=== PATIENT | female | born 1955 | race Caucasian/White ===

== ENCOUNTER 2018-11-02 09:50 | Inpatient (IN) | payer MEDICAID ==
[~2018-11-02] VITALS: Ht 167.6 cm; Wt 159.7 kg
[~2018-11-02 09:50] MED LIST: ATEN50TA PO; BENA10TA10 PO; FAMO20TA8 PO; HYDR25TA PO; MELO-106 PO; METF-414 PO; PANT40TA4 PO; SIME180C47 PO; SIMV20TA6 PO
[2018-11-02] MEDS ORDERED: SODIUM CHLORIDE 0.9% 1,000 ML IV ONE ×2 (10:23→12:00)
[2018-11-02] MEDS ORDERED: KETOROLAC 30MG/ML VIAL IV STA (10:23)
[2018-11-02 10:55] LABS: BASOPHILS % 0.6 % (0.0-2.0); EOSINOPHILS % 0.5 % (0.0-5.0); HEMATOCRIT. 45.9 % (36.0-48.0); HEMOGLOBIN. 15.6 g/dL (12.0-16.0); LYMPHOCYTES % 11.7 % (20.0-50.0); MEAN CORPUSCULAR HEMOGLOBIN 31.2 pg (28.0-32.0); MEAN CORPUSCULAR VOLUME 92.2 fL (81.0-99.0); MEAN PLATELET VOLUME 7.6 fl (7.4-10.4); MONOCYTES % 4.4 % (2.0-8.0); NEUTROPHILS % 82.8 % (40.0-76.0); PLATELET 246 x1000/uL (130-400); RED BLOOD CELL COUNT 4.98 mill/uL (4.2-5.4); RED CELL DISTRIBUTION WIDTH 13.8 % (11.6-14.6)
[2018-11-02 11:01] LABS: CHLORIDE 100 mEq/L (98-107)
[2018-11-02] MEDS ORDERED: ONDANSETRON HCL 4MG/2ML INJ IV ONE ×2 (12:00→14:15)
[2018-11-02 12:09] LABS: CLARITY URINE CLOUDY (CLEAR); COLOR URINE DARK YELLOW (YELLOW); KETONES URINE TRACE (NEGATIVE); LEUKOCYTE ESTERASE URINE NEGATIVE (NEGATIVE); NITRITE URINE NEGATIVE (NEGATIVE); OCCULT BLOOD URINE NEGATIVE (NEGATIVE); PH URINE 7.5 (4.5-8.0); PROTEIN URINE 2+ (NEGATIVE); SPECIFIC GRAVITY URINE 1.023 (1.005-1.030)
[2018-11-02 12:20] LABS: BG BASE EXCESS 5.7 mmol/L (-2.0-2.0); BG FRACTION INSPIRED OXYGEN 21; BG HCO3 ACT 30.6 mmol/L (22.0-26.0); BG METHEMOGLOBIN 0.2 % (0.0-1.5); BG OXYGEN SATURATION 94.9 % (92.0-98.5); BG OXYHEMOGLOBIN 93.8 % (94.0-97.0); BG PCO2 44.9 mmHg (35.0-45.0); BG PH 7.451 (7.350-7.450); BG PO2 70.5 mmHg (75.0-100.0); BG SAMPLE SITE RIGHT BRACHIAL; BG TOTAL HEMOGLOBIN 15.8 g/dL (12.0-18.0); BG VENT MODE ROOM AIR
[2018-11-02] MEDS ORDERED: LORAZEPAM 0.5MG TABLET PO ONE (13:30)
[2018-11-02] MEDS ORDERED: VISCOUS LIDOCAINE 2% 15 ML UDC MM PRN (13:30)
[2018-11-02] MEDS ORDERED: ONDANSETRON HCL 4MG/2ML INJ IV PRN (15:15)
[2018-11-02] MEDS ORDERED: DIPHENHYDRAMINE 50MG/ML VIAL IV PRN (15:15)
[2018-11-02] MEDS ORDERED: GUAIFENESIN 200MG/10ML SUGAR FREE UDC PO PRN (15:15)
[2018-11-02] MEDS ORDERED: IPRATROPIUM/ALBUTEROL 0.5-3(2.5)MG/3ML NEB INH PRN (15:15)
[2018-11-02] MEDS ORDERED: DOCUSATE SODIUM 100MG CAPSULE PO PRN (15:15)
[2018-11-02] MEDS ORDERED: MORPHINE SULFATE 4 MG/ML CPJ (NOT FOR IM USE) IV PRN (15:15)
[2018-11-02 15:28] LABS: PHOSPHORUS 1.8 mg/dL (2.5-4.9)
[2018-11-02] MEDS ORDERED: HYDRALAZINE 20MG/ML VIAL IV PRN ×2 (17:30→19:00)
[2018-11-02] MEDS ORDERED: HYDRALAZINE 10 MG in SODIUM CHLORIDE 0.9% 49.5 ML IV PRN (19:15)
[2018-11-02 20:00] VITALS: BP 176/89
[2018-11-02] MEDS ORDERED: DEXTROSE 50% WATER 50ML SYRINGE IV PRN (20:15)
[2018-11-02] MEDS: BLOOD SUGAR DIAGNOSTIC STRIP TEST SCH (20:41)
[2018-11-02] MEDS: INSULIN LISPRO 100 UNITS/ML SUBCUT SCH (21:22)
[2018-11-02] MEDS: ENALAPRIL 1.25 MG in DEXTROSE 5% WATER 50 ML IV SCH (22:27)
[2018-11-02] MEDS: ENOXAPARIN 40MG/0.4ML SYR SUBCUT SCH (22:32)
[2018-11-03] VITALS: BP 157/84
[2018-11-03] MEDS ORDERED: LORA10TA7 PO (02:25)
[2018-11-03] MEDS: ENALAPRIL 1.25 MG in DEXTROSE 5% WATER 50 ML IV SCH ×4 (03:16→21:16)
[2018-11-03 04:00] VITALS: BP 152/80
[2018-11-03] MEDS: BLOOD SUGAR DIAGNOSTIC STRIP TEST SCH ×4 (06:44→21:15)
[2018-11-03 07:40] LABS: BASOPHILS % 0.3 % (0.0-2.0); EOSINOPHILS % 1.5 % (0.0-5.0); HEMATOCRIT. 42.5 % (36.0-48.0); HEMOGLOBIN. 14.4 g/dL (12.0-16.0); LYMPHOCYTES % 27.2 % (20.0-50.0); MEAN CORPUSCULAR HEMOGLOBIN 31.7 pg (28.0-32.0); MEAN CORPUSCULAR VOLUME 93.8 fL (81.0-99.0); MEAN PLATELET VOLUME 7.8 fl (7.4-10.4); MONOCYTES % 13.1 % (2.0-8.0); NEUTROPHILS % 57.9 % (40.0-76.0); PLATELET 211 x1000/uL (130-400); RED BLOOD CELL COUNT 4.54 mill/uL (4.2-5.4); RED CELL DISTRIBUTION WIDTH 13.9 % (11.6-14.6)
[2018-11-03] MEDS: INSULIN LISPRO 100 UNITS/ML SUBCUT SCH ×4 (07:50→21:00)
[2018-11-03 07:56] VITALS: BP 160/75
[2018-11-03 08:18] LABS: CHLORIDE 107 mEq/L (98-107)
[2018-11-03 08:32] LABS: HDL CHOLESTEROL 43 mg/dL (40-59)
[2018-11-03 08:33] LABS: LDL CHOLESTEROL 102 mg/dL (5-100)
[2018-11-03] MEDS: ENOXAPARIN 40MG/0.4ML SYR SUBCUT SCH ×2 (09:20→21:15)
[2018-11-03 12:00] VITALS: BP 130/93
[2018-11-03] MEDS: ACETAMINOPHEN 650MG SUPP PR PRN ×2 (12:19→18:52)
[2018-11-03] MEDS: ATENOLOL 50 MG TABLET PO SCH (14:00)
[2018-11-03] MEDS: LORATADINE 10MG TABLET PO SCH (14:00)
[2018-11-03] MEDS: HYDROCHLOROTHIAZIDE 25MG TABLET PO SCH (14:00)
[2018-11-03 16:00] VITALS: BP 124/88
[2018-11-03] MEDS ORDERED: DEXT 5%/0.45% NACL 500ML 500 ML IV ONE (16:30)
[2018-11-03 20:00] VITALS: BP 168/87
[2018-11-03] MEDS: ATORVASTATIN CALCIUM 20MG TABLET PO SCH (21:00)
[2018-11-03] MEDS: FAMOTIDINE 20MG TABLET PO SCH (21:00)
[2018-11-03] MEDS ORDERED: ENALAPRIL 2.5MG/2ML VIAL 2ML IV SCH (22:00)
[2018-11-04] VITALS: BP 146/64
[2018-11-04] MEDS: ENALAPRIL 1.25 MG in DEXTROSE 5% WATER 50 ML IV SCH ×4 (03:20→22:27)
[2018-11-04 04:00] VITALS: BP 170/80
[2018-11-04] MEDS: BLOOD SUGAR DIAGNOSTIC STRIP TEST SCH ×4 (06:20→21:27)
[2018-11-04] MEDS: INSULIN LISPRO 100 UNITS/ML SUBCUT SCH ×4 (07:50→21:00)
[2018-11-04 08:00] VITALS: BP_SYST 122; BP_SYST 175; BP_DIAS 112; BP_DIAS 70
[2018-11-04] MEDS: BENAZEPRIL 10MG TABLET PO SCH (08:33)
[2018-11-04] MEDS: ATENOLOL 50 MG TABLET PO SCH (08:33)
[2018-11-04] MEDS: LORATADINE 10MG TABLET PO SCH (08:33)
[2018-11-04] MEDS: HYDROCHLOROTHIAZIDE 25MG TABLET PO SCH (08:33)
[2018-11-04] MEDS ORDERED: PNEUMOCOCCAL 23-VAL P-SAC VAC 0.5 ML IM ONE (09:00)
[2018-11-04] MEDS: ENOXAPARIN 40MG/0.4ML SYR SUBCUT SCH ×2 (09:52→20:00)
[2018-11-04 12:00] VITALS: BP 179/105
[2018-11-04] MEDS ORDERED: HYDRALAZINE 5 MG in SODIUM CHLORIDE 0.9% 49.75 ML IV SCH (13:00)
[2018-11-04 16:00] VITALS: BP 156/84
[2018-11-04 20:00] VITALS: BP 163/79
[2018-11-04] MEDS: FAMOTIDINE 20MG TABLET PO SCH (21:00)
[2018-11-04] MEDS: ATORVASTATIN CALCIUM 20MG TABLET PO SCH (21:00)
[2018-11-04] MEDS ORDERED: SODIUM CHLORIDE 0.9% 1,000 ML IV SCH (22:15)
[2018-11-05] VITALS: BP 138/72
[2018-11-05] MEDS: ACETAMINOPHEN 650MG SUPP PR PRN (00:59)
[2018-11-05 04:00] VITALS: BP 174/86
[2018-11-05] MEDS: ENALAPRIL 1.25 MG in DEXTROSE 5% WATER 50 ML IV SCH ×3 (04:07→16:00)
[2018-11-05 06:03] LABS: BASOPHILS % 0.3 % (0.0-2.0); HEMATOCRIT. 43.4 % (36.0-48.0); HEMOGLOBIN. 14.4 g/dL (12.0-16.0); LYMPHOCYTES % 28.4 % (20.0-50.0); MEAN CORPUSCULAR HEMOGLOBIN 31.1 pg (28.0-32.0); MEAN CORPUSCULAR VOLUME 93.8 fL (81.0-99.0); MEAN PLATELET VOLUME 7.7 fl (7.4-10.4); MONOCYTES % 8.2 % (2.0-8.0); NEUTROPHILS % 62.1 % (40.0-76.0); PLATELET 231 x1000/uL (130-400); RED BLOOD CELL COUNT 4.62 mill/uL (4.2-5.4); RED CELL DISTRIBUTION WIDTH 13.7 % (11.6-14.6)
[2018-11-05] MEDS: BLOOD SUGAR DIAGNOSTIC STRIP TEST SCH ×3 (06:36→18:15)
[2018-11-05 07:29] LABS: CHLORIDE 105 mEq/L (98-107)
[2018-11-05] MEDS: INSULIN LISPRO 100 UNITS/ML SUBCUT SCH ×3 (07:50→17:50)
[2018-11-05] MEDS: ENOXAPARIN 40MG/0.4ML SYR SUBCUT SCH (08:01)
[2018-11-05] MEDS: LORATADINE 10MG TABLET PO SCH (08:01)
[2018-11-05] MEDS: BENAZEPRIL 10MG TABLET PO SCH (08:01)
[2018-11-05] MEDS: HYDROCHLOROTHIAZIDE 25MG TABLET PO SCH (08:01)
[2018-11-05] MEDS: ATENOLOL 50 MG TABLET PO SCH (08:02)
[2018-11-05 08:21] VITALS: BP 152/90
[2018-11-05] MEDS ORDERED: ACETAMINOPHEN 650MG/20.3ML UDC PO PRN (11:30)
[2018-11-05 11:37] VITALS: BP 151/87
[2018-11-05 16:01] VITALS: BP 170/92
[2018-11-05 20:00] VITALS: BP 183/83
== END 2018-11-05 20:15 | disposition left against medical advice (07) ==
LOC: ER 09:50 → 6EST 11:50 → EDBEDREQ 11:57 → CANBEDREQ 12:38 → ENRESERV 17:53
PROVIDERS: ADMIT Internal Medicine; ATTEND Internal Medicine
DX: K80.20 Calculus of gallbladder without cholecystitis without obstruction (principal); E66.01 Morbid (severe) obesity due to excess calories; K76.0 Fatty (change of) liver, not elsewhere classified; E11.65 Type 2 diabetes mellitus with hyperglycemia; R16.0 Hepatomegaly, not elsewhere classified; Z68.43 Body mass index [BMI] 50.0-59.9, adult; K44.9 Diaphragmatic hernia without obstruction or gangrene; Z53.21 Procedure and treatment not carried out due to patient leaving prior to being seen by health care provider; K43.9 Ventral hernia without obstruction or gangrene; I10 Essential (primary) hypertension; Z79.84 Long term (current) use of oral hypoglycemic drugs; Z79.899 Other long term (current) drug therapy; Z88.8 Allergy status to other drugs, medicaments and biological substances
CPT/HCPCS: 36415; 36600; 74018; 74176; 76700; 80048; 80061; 82375; 82805; 82962; 83036; 83735; 84100; 84443; 90732; 93970; 97116; 97162; 97166; 99285; C1893; J0360; J1650; J1815; J1885; J2405; J3490; J7030; J7060; A4315

== ENCOUNTER 2019-04-20 16:39 | Emergency (ER) | payer MEDICAID ==
[~2019-04-20] VITALS: Ht 167.6 cm; Wt 109.0 kg
[~2019-04-20 16:39] MED LIST changes: -BENA10TA10 PO; +BENA10TA12 PO; +LORA10TA7 PO
[2019-04-20 18:37] VITALS: BP 129/87
== END 2019-04-20 19:18 | disposition home or self-care (01) ==
LOC: ER 16:55
DX: K94.00 Colostomy complication, unspecified (principal); E11.9 Type 2 diabetes mellitus without complications; I10 Essential (primary) hypertension; Z88.4 Allergy status to anesthetic agent; Z79.899 Other long term (current) drug therapy
CPT/HCPCS: 99283

== ENCOUNTER 2019-04-28 18:47 | Emergency (ER) | payer MEDICAID ==
[~2019-04-28] VITALS: Ht 162.6 cm; Wt 85.0 kg
[2019-04-28 19:53] LABS: CHLORIDE 109 mEq/L (98-107)
[2019-04-28 20:04] LABS: BASOPHILS % 0.9 % (0.0-2.0); EOSINOPHILS % 2.5 % (0.0-5.0); HEMATOCRIT. 35.9 % (36.0-48.0); HEMOGLOBIN. 11.7 g/dL (12.0-16.0); LYMPHOCYTES % 32.3 % (20.0-50.0); MEAN CORPUSCULAR HEMOGLOBIN 32.7 pg (28.0-32.0); MEAN CORPUSCULAR VOLUME 100.3 fL (81.0-99.0); MEAN PLATELET VOLUME 7.3 fl (7.4-10.4); MONOCYTES % 10.5 % (2.0-8.0); NEUTROPHILS % 53.8 % (40.0-76.0); PLATELET 272 x1000/uL (130-400); RED BLOOD CELL COUNT 3.58 mill/uL (4.2-5.4); RED CELL DISTRIBUTION WIDTH 18.2 % (11.6-14.6)
[2019-04-28] MEDS ORDERED: ACETAMINOPHEN WITH CODEINE 300/30MG TABLET PO ONE (20:45)
[2019-04-28] MEDS ORDERED: AMPICILLIN SOD/SULBACTAM NA 3 G in SODIUM CHLORIDE 0.9% 100 ML IV SCH (22:15)
[2019-04-28] MEDS ORDERED: CEFAZOLIN 1000MG PREMIX 50 ML IV ONE (22:30)
[2019-04-29 01:35] VITALS: BP 122/70
== END 2019-04-29 01:36 | disposition short-term general hospital (02) ==
LOC: ER 18:47
DX: L03.311 Cellulitis of abdominal wall (principal); T85.638A Leakage of other specified internal prosthetic devices, implants and grafts, initial encounter; E11.9 Type 2 diabetes mellitus without complications; I10 Essential (primary) hypertension; Z93.3 Colostomy status; Z79.899 Other long term (current) drug therapy; Z91.041 Radiographic dye allergy status
CPT/HCPCS: 36415; 80053; 85025; 87040; 96365; 99285; J0295; J0690; J7050; Z7610

== ENCOUNTER 2019-10-22 11:30 | Emergency (ER) | payer MEDICAID ==
[~2019-10-22] VITALS: Ht 165.1 cm; Wt 91.0 kg
[~2019-10-22 11:30] MED LIST changes: -ATEN50TA PO; -BENA10TA12 PO; -FAMO20TA8 PO; -HYDR25TA PO; -MELO-106 PO; -METF-414 PO; -PANT40TA4 PO; +SIMV-43 PO; -SIMV20TA6 PO
[2019-10-22 16:27] VITALS: BP 116/59
== END 2019-10-22 16:15 | disposition home or self-care (01) ==
LOC: ER 11:30
DX: Z43.3 Encounter for attention to colostomy (principal); I10 Essential (primary) hypertension; E11.9 Type 2 diabetes mellitus without complications
CPT/HCPCS: 99283

== ENCOUNTER 2020-01-23 22:10 | Emergency (ER) | payer MEDICAID ==
[~2020-01-23] VITALS: Ht 167.6 cm; Wt 73.0 kg
[2020-01-23] MEDS ORDERED: ONDANSETRON HCL 4MG/2ML INJ IV STA (23:16)
[2020-01-23 23:47] LABS: BASOPHILS % 0.6 % (0.0-2.0); EOSINOPHILS % 1.2 % (0.0-5.0); HEMATOCRIT. 37.7 % (36.0-48.0); HEMOGLOBIN. 12.8 g/dL (12.0-16.0); LYMPHOCYTES % 20.9 % (20.0-50.0); MEAN CORPUSCULAR HEMOGLOBIN 35.1 pg (28.0-32.0); MEAN CORPUSCULAR VOLUME 103.6 fL (81.0-99.0); MONOCYTES % 6.5 % (2.0-8.0); NEUTROPHILS % 70.8 % (40.0-76.0); PLATELET 195 x1000/uL (130-400); RED BLOOD CELL COUNT 3.64 mill/uL (4.2-5.4)
[2020-01-23 23:54] LABS: CHLORIDE 101 mEq/L (98-107)
[2020-01-24] MEDS ORDERED: INSULIN REGULAR (HUMULIN R) 300UNITS/3ML IV NR (02:45)
[2020-01-24] MEDS ORDERED: SODIUM BICARBONATE 8.4% 1 MEQ/ML 50ML SYR IV NR (02:45)
[2020-01-24] MEDS ORDERED: DEXTROSE 50% WATER 50ML SYRINGE IV NR (02:45)
[2020-01-24] MEDS ORDERED: CALCIUM CHLORIDE 1GM/10ML SYR IV NR (02:45)
[2020-01-24] MEDS ORDERED: MORPHINE SULFATE 4 MG/ML CPJ (NOT FOR IM USE) IV ONE (03:45)
[2020-01-24] MEDS ORDERED: DIPHENHYDRAMINE 50MG/ML VIAL IV ONE (03:45)
[2020-01-24] MEDS ORDERED: SODIUM CHLORIDE 0.9% 1,000 ML IV ONE (04:30)
[2020-01-24] MEDS ORDERED: FENTANYL CITRATE/PF 50MCG/ML 2ML VIAL IV ONE (04:30)
[2020-01-24] MEDS ORDERED: IOHEXOL-300 100 ML BOTTLE ONE (04:32)
[2020-01-24] MEDS ORDERED: DEXTROSE 50% WATER 50ML SYRINGE IV ONE (05:00)
[2020-01-24 05:22] LABS: CLARITY URINE CLOUDY (CLEAR); COLOR URINE YELLOW (YELLOW); KETONES URINE TRACE (NEGATIVE); LEUKOCYTE ESTERASE URINE 2+ (NEGATIVE); NITRITE URINE NEGATIVE (NEGATIVE); OCCULT BLOOD URINE TRACE (NEGATIVE); PROTEIN URINE 1+ (NEGATIVE); SPECIFIC GRAVITY URINE 1.027 (1.005-1.030); UROBILINOGEN URINE 0.2 E.U./dL (0.2-1.0)
[2020-01-24 08:34] VITALS: BP 103/72
== END 2020-01-24 10:31 | disposition short-term general hospital (02) ==
LOC: ER 22:10
DX: N20.0 Calculus of kidney (principal); R11.2 Nausea with vomiting, unspecified; R10.9 Unspecified abdominal pain; E87.5 Hyperkalemia; K43.9 Ventral hernia without obstruction or gangrene; I12.0 Hypertensive chronic kidney disease with stage 5 chronic kidney disease or end stage renal disease; E11.22 Type 2 diabetes mellitus with diabetic chronic kidney disease; N18.6 End stage renal disease; Z88.6 Allergy status to analgesic agent; Z93.3 Colostomy status
CPT/HCPCS: 36415; 74177; 80053; 81003; 82962; 83605; 83690; 84484; 85025; 87086; 96361; 96374; 96375; 96376; 99285; J1200; J1815; J2270; J2405; J3010; J3490; J7030; Q9967

== ENCOUNTER 2021-03-10 11:36 | Emergency (ER) | payer MEDICAID ==
[~2021-03-10 11:36] MED LIST changes: +CHOL40002 PO; +CYAN50008 MT; +FERR-71 MT; +LEVO500T2 MT
== END 2021-03-10 12:00 | disposition left against medical advice (07) ==
LOC: ER 11:36
DX: Z53.21 Procedure and treatment not carried out due to patient leaving prior to being seen by health care provider (principal)

== ENCOUNTER 2021-07-18 11:22 | Inpatient (IN) | payer MEDICAID ==
[~2021-07-18] VITALS: Ht 167.6 cm; Wt 86.6 kg
[~2021-07-18 11:22] MED LIST changes: -CYAN50008 MT; +CYAN50009 MT; -SIME180C47 PO; +SIME180C70 PO
[2021-07-18] MEDS ORDERED: KETOROLAC 30MG/ML VIAL IV NR (13:15)
[2021-07-18 14:27] LABS: BASOPHILS % 0.4 % (0.0-2.0); EOSINOPHILS % 0.1 % (0.0-5.0); HEMATOCRIT. 30.9 % (36.0-48.0); HEMOGLOBIN. 10.6 g/dL (12.0-16.0); LYMPHOCYTES % 15.8 % (20.0-50.0); MEAN CORPUSCULAR VOLUME 107.5 fL (81.0-99.0); MEAN PLATELET VOLUME 7.6 fl (7.4-10.4); MONOCYTES % 5.2 % (2.0-8.0); NEUTROPHILS % 78.5 % (40.0-76.0); PLATELET 157 x1000/uL (130-400); RED BLOOD CELL COUNT 2.87 mill/uL (4.2-5.4); RED CELL DISTRIBUTION WIDTH 14.1 % (11.6-14.6)
[2021-07-18 14:35] LABS: CHLORIDE 99 mEq/L (98-107)
[2021-07-18] MEDS ORDERED: FAMOTIDINE 20MG/2ML VIAL IV ONE (16:30)
[2021-07-18] MEDS ORDERED: ONDANSETRON HCL 4MG/2ML INJ IV ONE (16:30)
[2021-07-18] MEDS ORDERED: MAGNESIUM/ALUMINUM HYDROXIDE/SIMETHICONE 30ML UDC PO ONE (16:30)
[2021-07-18 17:42] LABS: CLARITY URINE TURBID (CLEAR); COLOR URINE YELLOW (YELLOW); KETONES URINE NEGATIVE (NEGATIVE); LEUKOCYTE ESTERASE URINE 2+ (NEGATIVE); NITRITE URINE NEGATIVE (NEGATIVE); OCCULT BLOOD URINE 1+ (NEGATIVE); PROTEIN URINE 2+ (NEGATIVE); SPECIFIC GRAVITY URINE 1.015 (1.005-1.030); UROBILINOGEN URINE 0.2 E.U./dL (0.2-1.0)
[2021-07-18] MEDS ORDERED: MORPHINE SULFATE 4 MG/ML CPJ (NOT FOR IM USE) IV ONE (18:00)
[2021-07-18] MEDS ORDERED: CEFTRIAXONE 1 G PREMIX 50 ML IV NR (23:45)
[2021-07-19] MEDS ORDERED: ONDANSETRON HCL 4MG/2ML INJ IV PRN (08:30)
[2021-07-19] MEDS ORDERED: SODIUM BICARBONATE 8.4% 1 MEQ/ML 50ML SYR IV NR (09:28)
[2021-07-19] MEDS ORDERED: IBUPROFEN 600MG TABLET PO PRN (10:00)
[2021-07-19 14:19] LABS: HEPATITIS B SURFACE ANTIGEN NEGATIVE
[2021-07-19 15:00] VITALS: BP 154/45
[2021-07-19] MEDS ORDERED: IBUP-2741 MT (15:29)
[2021-07-19] MEDS ORDERED: MIDO2.5T MT (15:29)
[2021-07-19 15:40] VITALS: BP 111/30
[2021-07-19] MEDS ORDERED: TRAMADOL 50MG TABLET PO PRN (17:00)
[2021-07-19 20:00] VITALS: BP 125/31
[2021-07-19] MEDS ORDERED: PNEUMOCOCCAL 23-VAL P-SAC VAC 0.5 ML IM ONE (20:00)
[2021-07-19] MEDS ORDERED: FAMOTIDINE 20MG TABLET PO SCH (21:00)
[2021-07-19] MEDS ORDERED: CEFTRIAXONE 1,000 MG in DEXTROSE 5% WATER 50 ML IV SCH ×2 (22:00→23:00)
[2021-07-20] VITALS: BP 96/30
[2021-07-20 04:00] VITALS: BP 126/40
[2021-07-20 07:26] LABS: HEMOGLOBIN. 9.6 g/dL (12.0-16.0); MEAN CORPUSCULAR HEMOGLOBIN 36.2 pg (28.0-32.0); MEAN CORPUSCULAR VOLUME 105.2 fL (81.0-99.0); MEAN PLATELET VOLUME 7.7 fl (7.4-10.4); PLATELET 148 x1000/uL (130-400); RED BLOOD CELL COUNT 2.66 mill/uL (4.2-5.4); RED CELL DISTRIBUTION WIDTH 13.8 % (11.6-14.6)
[2021-07-20 08:00] VITALS: BP 134/48
[2021-07-20] MEDS ORDERED: POTASSIUM CHLORIDE 20MEQ TABLET SR PO SCH (10:45)
[2021-07-20 12:00] VITALS: BP 126/38
[2021-07-20 12:59] LABS: PLATELET ESTIMATE NORMAL
[2021-07-20 13:06] VITALS: BP 126/38
[2021-07-20] MEDS ORDERED: LEVO500T89 MT (14:25)
== END 2021-07-20 17:25 | disposition home or self-care (01) | DRG 241 ==
LOC: ER 11:22 → EDBEDREQ 17:10 → MICUSO 17:19 → EDBEDREQ 17:33 → EDBEDREQTM 19:57 → 7EST 07-19 15:25
PROVIDERS: ADMIT Internal Medicine; ATTEND Internal Medicine
PROC: 5A1D70Z Performance of Urinary Filtration, Intermittent, Less than 6 Hours Per Day (ICD-10-PCS; principal; 2021-07-19)
DX: K29.70 Gastritis, unspecified, without bleeding (principal); I12.0 Hypertensive chronic kidney disease with stage 5 chronic kidney disease or end stage renal disease; E87.2 Acidosis; E87.1 Hypo-osmolality and hyponatremia; E11.22 Type 2 diabetes mellitus with diabetic chronic kidney disease; D64.9 Anemia, unspecified; Z20.822 Contact with and (suspected) exposure to COVID-19; K43.9 Ventral hernia without obstruction or gangrene; E66.9 Obesity, unspecified; E78.5 Hyperlipidemia, unspecified; N18.6 End stage renal disease; Z99.2 Dependence on renal dialysis; Z93.3 Colostomy status; Z68.30 Body mass index [BMI] 30.0-30.9, adult; Z88.6 Allergy status to analgesic agent; Z79.899 Other long term (current) drug therapy; Z71.3 Dietary counseling and surveillance
CPT/HCPCS: 36415; 71045; 74176; 80048; 80053; 81003; 82962; 83605; 84145; 84484; 85025; 86705; 86709; 86803; 87340; 87426; 90732; 93005; 99291; J0696; J1885; J2270; J2405; J3490; J7040; J7060

== ENCOUNTER 2021-08-10 16:07 | Inpatient (IN) | payer MEDICAID ==
[~2021-08-10] VITALS: Ht 165.1 cm; Wt 83.9 kg
[~2021-08-10 16:07] MED LIST changes: +IBUP-2741 MT; +LEVO500T89 MT; +MIDO2.5T MT
[2021-08-10] MEDS ORDERED: IBUPROFEN 600MG TABLET PO STA (17:27)
[2021-08-10] MEDS ORDERED: SODIUM CHLORIDE 0.9% 250 ML IV ONE (18:30)
[2021-08-10 18:44] LABS: HEMATOCRIT. 27.6 % (36.0-48.0); HEMOGLOBIN. 9.1 g/dL (12.0-16.0); MEAN PLATELET VOLUME 6.7 fl (7.4-10.4); PLATELET 169 x1000/uL (130-400); RED CELL DISTRIBUTION WIDTH 13.8 % (11.6-14.6)
[2021-08-10 18:49] LABS: CHLORIDE 103 mEq/L (98-107)
[2021-08-10 19:26] LABS: PLATELET ESTIMATE NORMAL
[2021-08-11] MEDS: MIDODRINE HCL 5MG TABLET PO SCH ×3 (03:57→21:00)
[2021-08-11 09:30] VITALS: BP 93/52
[2021-08-11] MEDS ORDERED: ONDANSETRON HCL 4MG/2ML INJ IV PRN (09:30)
[2021-08-11] MEDS ORDERED: IBUP-2030 PO (10:18)
[2021-08-11 10:39] VITALS: BP 93/52
[2021-08-11 12:00] VITALS: BP 135/55
[2021-08-11 16:00] VITALS: BP 129/50
[2021-08-11] MEDS ORDERED: TRAMADOL 50MG TABLET PO PRN (16:45)
[2021-08-11] MEDS ORDERED: CEFTRIAXONE 1 G PREMIX 50 ML IV SCH (19:30)
[2021-08-11 19:47] LABS: HEPATITIS B SURFACE ANTIGEN NEGATIVE
[2021-08-11 20:00] VITALS: BP 97/51
[2021-08-11] MEDS: CEFTRIAXONE 1,000 MG in DEXTROSE 5% WATER 50 ML IV SCH (22:45)
[2021-08-12] VITALS: BP 137/98
[2021-08-12 04:00] VITALS: BP 134/40
[2021-08-12] MEDS: MIDODRINE HCL 5MG TABLET PO SCH ×3 (05:55→21:21)
[2021-08-12 08:00] VITALS: BP 112/42
[2021-08-12 12:00] VITALS: BP 110/45
[2021-08-12 16:00] VITALS: BP 92/54
[2021-08-12] MEDS ORDERED: LEVO250T58 MT (18:09)
[2021-08-12 20:00] VITALS: BP 92/55
[2021-08-12] MEDS ORDERED: EPOETIN ALFA-EPBX 10,000 UNIT/ML VIAL SUBCUT SCH (21:00)
[2021-08-12] MEDS: CEFTRIAXONE 1,000 MG in DEXTROSE 5% WATER 50 ML IV SCH (21:21)
[2021-08-13] VITALS: BP 88/61
[2021-08-13 04:00] VITALS: BP 92/57
[2021-08-13] MEDS: MIDODRINE HCL 5MG TABLET PO SCH (06:03)
[2021-08-13 08:50] VITALS: BP 107/51
[2021-08-13 10:04] VITALS: BP 107/51
[2021-08-13 11:36] LABS: BASOPHILS % 0.6 % (0.0-2.0); EOSINOPHILS % 2.1 % (0.0-5.0); HEMATOCRIT. 26.3 % (36.0-48.0); HEMOGLOBIN. 8.6 g/dL (12.0-16.0); LYMPHOCYTES % 25.7 % (20.0-50.0); MEAN CORPUSCULAR HEMOGLOBIN 34.8 pg (28.0-32.0); MEAN PLATELET VOLUME 7.3 fl (7.4-10.4); MONOCYTES % 9.6 % (2.0-8.0); PLATELET 199 x1000/uL (130-400); RED BLOOD CELL COUNT 2.46 mill/uL (4.2-5.4); RED CELL DISTRIBUTION WIDTH 13.8 % (11.6-14.6)
== END 2021-08-13 11:00 | disposition home or self-care (01) | DRG 463 ==
LOC: ER 16:07 → MICUSO 23:29 → 5WST 08-11 10:30
PROVIDERS: ADMIT Internal Medicine; ATTEND Internal Medicine
PROC: 5A1D70Z Performance of Urinary Filtration, Intermittent, Less than 6 Hours Per Day (ICD-10-PCS; principal; 2021-08-12)
DX: N39.0 Urinary tract infection, site not specified (principal); I12.0 Hypertensive chronic kidney disease with stage 5 chronic kidney disease or end stage renal disease; E11.22 Type 2 diabetes mellitus with diabetic chronic kidney disease; D64.9 Anemia, unspecified; E66.9 Obesity, unspecified; R55 Syncope and collapse; N18.6 End stage renal disease; Z20.822 Contact with and (suspected) exposure to COVID-19; Z93.3 Colostomy status; Z99.2 Dependence on renal dialysis; Z68.38 Body mass index [BMI] 38.0-38.9, adult; Z88.1 Allergy status to other antibiotic agents; Z88.5 Allergy status to narcotic agent
CPT/HCPCS: 36415; 71045; 80048; 80053; 84145; 85025; 86705; 86709; 86803; 87340; 87426; 93005; 99285; J0696; J0885; J7030; J7040; J7060

== ENCOUNTER 2023-06-06 16:58 | Inpatient (IN) | payer BC, MEDICAID ==
[~2023-06-06] VITALS: Ht 162.6 cm; Wt 88.3 kg
[~2023-06-06 16:58] MED LIST changes: +IBUP-2030 PO; +LEVO250T74 MT; -LEVO500T2 MT; -LEVO500T89 MT
[2023-06-06 18:21] LABS: HEMOGLOBIN. 9.9 g/dL (12.0-16.0); MEAN CORPUSCULAR HGB CONC 34.1 g/dL (31.0-37.0); MEAN CORPUSCULAR VOLUME 102.8 fL (81.0-99.0); MEAN PLATELET VOLUME 7.1 fl (7.4-10.4); PLATELET 175 x1000/uL (130-400); RED BLOOD CELL COUNT 2.82 mill/uL (4.2-5.4); RED CELL DISTRIBUTION WIDTH 15.4 % (11.6-14.6); WHITE BLOOD COUNT 7.6 x1000/uL (4.5-11.0)
[2023-06-06 18:22] LABS: DIFFERENTIAL COMMENT 1
[2023-06-06 18:35] LABS: ALANINE AMINOTRANSFERASE 7 IU/L (10-49); ALBUMIN 4.2 g/dL (3.2-4.8); ASPARTATE AMINOTRANSFERASE 14 IU/L (<34); BILIRUBIN TOTAL 0.8 mg/dL (0.1-1.0); CALCIUM 8.8 mg/dL (8.7-10.4); CARBON DIOXIDE 24 mEq/L (21-32); CHLORIDE 95 mEq/L (98-107); GLUCOSE 90 mg/dL (70-105); PHOSPHORUS 4.9 mg/dL (2.5-4.9); SODIUM 134 mEq/L (136-145); TROPONIN I HIGH SENSITIVITY 21 ng/L (3.0-34); UREA NITROGEN BLOOD 33 mg/dL (9-23)
[2023-06-06 18:42] LABS: CREATININE 7.4 mg/dL (0.6-1.0); POTASSIUM 2.6 mEq/L (3.5-5.1)
[2023-06-06 19:11] LABS: PLATELET ESTIMATE NORMAL
[2023-06-06] MEDS: POTASSIUM CHLORIDE 20MEQ TABLET SR PO ONE ×2 (19:45→21:40)
[2023-06-06] MEDS ORDERED: POTASSIUM CHLORIDE 20MEQ TABLET SR PO NR (21:45)
[2023-06-06] MEDS ORDERED: ONDANSETRON HCL 4MG/2ML INJ IV PRN (22:00)
[2023-06-06] MEDS ORDERED: ACETAMINOPHEN 650MG/20.3ML UDC GT PRN (22:00)
[2023-06-06] MEDS ORDERED: MORPHINE SULFATE 2 MG/ML CPJ (NOT FOR IM USE) IV PRN (22:00)
[2023-06-06] MEDS ORDERED: CLONIDINE 0.1MG TABLET PO PRN (22:00)
[2023-06-06] MEDS ORDERED: HYDROCODONE/ACETAMINOPHEN 5/325MG TABLET PO PRN (22:00)
[2023-06-06] MEDS ORDERED: LORAZEPAM 2MG/ML CPJ IV PRN (22:00)
[2023-06-06] MEDS ORDERED: NALOXONE HCL 0.4MG/ML VIAL IV PRN (22:45)
[2023-06-07] VITALS (8 sets, daily range): BP systolic 96–111; BP diastolic 48–59; PULSE 76–91; RESP 16–20; TEMP 96.1–98; O2SAT 98
[2023-06-07 06:57] LABS: HEMATOCRIT. 33.9 % (36.0-48.0); HEMOGLOBIN. 11.5 g/dL (12.0-16.0); MEAN CORPUSCULAR HEMOGLOBIN 34.8 pg (28.0-32.0); MEAN CORPUSCULAR VOLUME 102.3 fL (81.0-99.0); MEAN PLATELET VOLUME 7.7 fl (7.4-10.4); PLATELET 177 x1000/uL (130-400); RED BLOOD CELL COUNT 3.31 mill/uL (4.2-5.4); RED CELL DISTRIBUTION WIDTH 15.4 % (11.6-14.6); WHITE BLOOD COUNT 6.2 x1000/uL (4.5-11.0)
[2023-06-07 07:02] LABS: DIFFERENTIAL COMMENT 1
[2023-06-07 07:03] LABS: CALCIUM 8.8 mg/dL (8.7-10.4); POTASSIUM 3.3 mEq/L (3.5-5.1)
[2023-06-07 07:06] LABS: CREATININE 8.5 mg/dL (0.6-1.0)
[2023-06-07] MEDS: IPRATROPIUM/ALBUTEROL 0.5-3(2.5)MG/3ML NEB NEB SCH ×3 (08:19→21:10)
[2023-06-07] MEDS: FOLIC ACID 1MG TABLET PO SCH (09:10)
[2023-06-07] MEDS: ENOXAPARIN 30MG/0.3ML SYR SUBCUT SCH (09:11)
[2023-06-07] MEDS: FLUDROCORTISONE ACETATE 0.1MG TABLET PO SCH (10:42)
[2023-06-07] MEDS: MIDODRINE HCL 5MG TABLET PO SCH ×3 (10:42→17:14)
[2023-06-08] VITALS (15 sets, daily range): BP systolic 80–112; BP diastolic 40–68; PULSE 64–87; RESP 16–20; TEMP 97–98.7
[2023-06-08] MEDS: IPRATROPIUM/ALBUTEROL 0.5-3(2.5)MG/3ML NEB NEB SCH ×4 (03:05→21:21)
[2023-06-08 05:41] LABS: PLATELET ESTIMATE NORMAL
[2023-06-08] MEDS: FLUDROCORTISONE ACETATE 0.1MG TABLET PO SCH (09:32)
[2023-06-08] MEDS: FOLIC ACID 1MG TABLET PO SCH (09:32)
[2023-06-08] MEDS: MIDODRINE HCL 5MG TABLET PO SCH ×3 (09:32→17:29)
[2023-06-08] MEDS: ENOXAPARIN 30MG/0.3ML SYR SUBCUT SCH (09:33)
[2023-06-08] MEDS ORDERED: FLUD0.1T MT (13:46)
[2023-06-09] VITALS (7 sets, daily range): BP systolic 84–111; BP diastolic 37–60; PULSE 76–97; RESP 17–19; TEMP 97.5–98.6; O2SAT 95
[2023-06-09] MEDS: IPRATROPIUM/ALBUTEROL 0.5-3(2.5)MG/3ML NEB NEB SCH (00:51)
[2023-06-09] MEDS: FLUDROCORTISONE ACETATE 0.1MG TABLET PO SCH (08:36)
[2023-06-09] MEDS: FOLIC ACID 1MG TABLET PO SCH (08:36)
[2023-06-09] MEDS: MIDODRINE HCL 5MG TABLET PO SCH ×2 (08:37→12:08)
[2023-06-09] MEDS: ENOXAPARIN 30MG/0.3ML SYR SUBCUT SCH (08:37)
[2023-06-09 10:38] LABS: HEPATITIS A AB IGM NEGATIVE (Negative); HEPATITIS B CORE AB IGM NEGATIVE (Negative); HEPATITIS B SURFACE ANTIGEN NEGATIVE (Negative); HEPATITIS C AB NON REACTIVE (Neg) (Negative)
== END 2023-06-09 12:30 | disposition home or self-care (01) | DRG 425 ==
LOC: ER 17:05 → 7WST 19:38
PROVIDERS: ADMIT Internal Medicine Nephrology; ATTEND Internal Medicine Nephrology
PROC: 5A1D70Z Performance of Urinary Filtration, Intermittent, Less than 6 Hours Per Day (ICD-10-PCS; principal; 2023-06-06)
DX: E87.6 Hypokalemia (principal); I12.0 Hypertensive chronic kidney disease with stage 5 chronic kidney disease or end stage renal disease; N18.6 End stage renal disease; I95.9 Hypotension, unspecified; E11.22 Type 2 diabetes mellitus with diabetic chronic kidney disease; Z90.49 Acquired absence of other specified parts of digestive tract; Z93.3 Colostomy status; Z99.2 Dependence on renal dialysis
CPT/HCPCS: 36415; 80048; 80053; 83735; 84100; 84484; 85025; 86705; 86709; 87340; 90935; 93005; 94640; 99291; A6261; J1650

== ENCOUNTER 2023-06-28 16:51 | Emergency (ER) | payer MEDICAID ==
[~2023-06-28] VITALS: Ht 167.6 cm; Wt 100.0 kg
[~2023-06-28 16:51] MED LIST changes: +FLUD0.1T MT
[2023-06-28 17:12] VITALS: TEMP 98.2; O2SAT 99
[2023-06-28 19:51] LABS: BASOPHILS % 0.6 % (0.0-2.0); DIFFERENTIAL COMMENT 0; EOSINOPHILS % 1.2 % (0.0-5.0); HEMATOCRIT. 33.5 % (36.0-48.0); HEMOGLOBIN. 10.7 g/dL (12.0-16.0); LYMPHOCYTES % 21.7 % (20.0-50.0); MEAN CORPUSCULAR HEMOGLOBIN 34.4 pg (28.0-32.0); MEAN CORPUSCULAR HGB CONC 31.8 g/dL (31.0-37.0); MEAN CORPUSCULAR VOLUME 108.3 fL (81.0-99.0); MEAN PLATELET VOLUME 7.1 fl (7.4-10.4); MONOCYTES % 7.1 % (2.0-8.0); NEUTROPHILS % 69.4 % (40.0-76.0); PLATELET 226 x1000/uL (130-400); RED CELL DISTRIBUTION WIDTH 15.7 % (11.6-14.6); WHITE BLOOD COUNT 6.1 x1000/uL (4.5-11.0)
[2023-06-28 20:01] LABS: ALANINE AMINOTRANSFERASE 8 IU/L (10-49); ALBUMIN 4.5 g/dL (3.2-4.8); ASPARTATE AMINOTRANSFERASE 14 IU/L (<34); BILIRUBIN TOTAL 0.2 mg/dL (0.1-1.0); CALCIUM 9.2 mg/dL (8.7-10.4); CARBON DIOXIDE 27 mEq/L (21-32); CHLORIDE 96 mEq/L (98-107); GLUCOSE 145 mg/dL (70-105); POTASSIUM 3.6 mEq/L (3.5-5.1); PROTEIN TOTAL 7.9 g/dL (6.0-8.3); SODIUM 138 mEq/L (136-145); UREA NITROGEN BLOOD 36 mg/dL (9-23)
[2023-06-28 20:04] LABS: CREATININE 7.4 mg/dL (0.6-1.0)
[2023-06-28] MEDS ORDERED: CLIN-116 MT (20:30)
[2023-06-28] MEDS ORDERED: CLIN-194 MT (20:30)
[2023-06-28] MEDS ORDERED: CEPH500C2 MT (20:30)
[2023-06-28 20:44] VITALS: BP 102/69; PULSE 82; RESP 17
== END 2023-06-28 20:47 | disposition home or self-care (01) ==
LOC: ER 16:51
DX: S80.862A Insect bite (nonvenomous), left lower leg, initial encounter (principal); I10 Essential (primary) hypertension; E11.9 Type 2 diabetes mellitus without complications; Z88.6 Allergy status to analgesic agent; Z88.5 Allergy status to narcotic agent; Z79.899 Other long term (current) drug therapy; X58.XXXA Exposure to other specified factors, initial encounter; Y93.89 Activity, other specified; Y92.89 Other specified places as the place of occurrence of the external cause; Y99.8 Other external cause status
CPT/HCPCS: 36415; 80053; 85025; 99283

== ENCOUNTER 2023-08-31 16:58 | Emergency (ER) | payer BC, MEDICAID ==
[~2023-08-31] VITALS: Ht 162.6 cm; Wt 87.0 kg
[~2023-08-31 16:58] MED LIST changes: +CEPH500C2 MT; +CLIN-116 MT; +CLIN-194 MT
[2023-08-31 17:03] VITALS: O2SAT 100
[2023-08-31] MEDS ORDERED: ACETAMINOPHEN 325MG TABLET PO ONE (20:00)
[2023-08-31 21:00] VITALS: BP 130/75; PULSE 75; RESP 19; TEMP 97.8
== END 2023-08-31 21:16 | disposition home or self-care (01) ==
LOC: ER 16:58
DX: S13.4XXA Sprain of ligaments of cervical spine, initial encounter (principal); S27.892A Contusion of other specified intrathoracic organs, initial encounter; S09.90XA Unspecified injury of head, initial encounter; D64.9 Anemia, unspecified; E11.9 Type 2 diabetes mellitus without complications; I12.0 Hypertensive chronic kidney disease with stage 5 chronic kidney disease or end stage renal disease; E11.22 Type 2 diabetes mellitus with diabetic chronic kidney disease; N18.6 End stage renal disease; Z99.2 Dependence on renal dialysis; Z79.899 Other long term (current) drug therapy; W18.39XA Other fall on same level, initial encounter; Y93.89 Activity, other specified; Y92.89 Other specified places as the place of occurrence of the external cause; Y99.8 Other external cause status
CPT/HCPCS: 72128; 99284

== ENCOUNTER 2024-05-14 17:07 | Inpatient (IN) | payer MEDICAID ==
[~2024-05-14] VITALS: Ht 170.2 cm; Wt 81.6 kg
[~2024-05-14 17:07] MED LIST changes: +ACET-283 PO; +CALC667C PO; -CEPH500C2 MT; -CLIN-116 MT; -CLIN-194 MT; -IBUP-2030 PO; -IBUP-2741 MT; -LEVO250T74 MT; -MIDO2.5T MT; +MIDO5TAB4 PO; -SIME180C70 PO; +SIME80TA15 PO
[2024-05-14 18:50] LABS: CARBON DIOXIDE 20 mEq/L (21-32); CHLORIDE 98 mEq/L (98-107); SODIUM 132 mEq/L (136-145)
[2024-05-14] MEDS: SODIUM CHLORIDE 0.9% 1,000 ML IV ONE (18:50)
[2024-05-14] MEDS: ONDANSETRON HCL 4MG/2ML INJ IV STA (18:50)
[2024-05-14] MEDS: MORPHINE SULFATE 4 MG/ML INJ (FOR IV/IM USE) IV STA (18:50)
[2024-05-14 18:51] LABS: CALCIUM 8.5 mg/dL (8.7-10.4); HEMATOCRIT. 30.1 % (36.0-48.0); HEMOGLOBIN. 9.9 g/dL (12.0-16.0); MEAN CORPUSCULAR HEMOGLOBIN 33.8 pg (28.0-32.0); MEAN CORPUSCULAR HGB CONC 32.9 g/dL (31.0-37.0); MEAN CORPUSCULAR VOLUME 102.9 fL (81.0-99.0); MEAN PLATELET VOLUME 8.3 fl (7.4-10.4); PLATELET 143 x1000/uL (130-400); RED BLOOD CELL COUNT 2.92 mill/uL (4.2-5.4); RED CELL DISTRIBUTION WIDTH 15.3 % (11.6-14.6); WHITE BLOOD COUNT 11.3 x1000/uL (4.5-11.0)
[2024-05-14 18:56] LABS: GLUCOSE 220 mg/dL (70-105); UREA NITROGEN BLOOD 36 mg/dL (9-23)
[2024-05-14 18:57] LABS: DIFFERENTIAL COMMENT 1; INR 0.9; PROTHROMBIN TIME 10.3 sec (9.6-11.0); TROPONIN I HIGH SENSITIVITY 25 ng/L (3.0-34)
[2024-05-14 18:58] LABS: ALANINE AMINOTRANSFERASE 8 IU/L (10-49); ALBUMIN 4.2 g/dL (3.2-4.8); ASPARTATE AMINOTRANSFERASE 10 IU/L (<34); BILIRUBIN DIRECT 0.1 mg/dL (<=3.0); BILIRUBIN TOTAL 0.4 mg/dL (0.1-1.0); PROTEIN TOTAL 7.3 g/dL (6.0-8.3)
[2024-05-14 19:10] LABS: POTASSIUM 2.5 mEq/L (3.5-5.1)
[2024-05-14 19:11] LABS: CREATININE 8.9 mg/dL (0.6-1.0)
[2024-05-14] MEDS: POTASSIUM CHLORIDE 20MEQ/PACKET PO ONE (19:25)
[2024-05-14 19:56] LABS: PLATELET ESTIMATE NORMAL
[2024-05-14 23:25] VITALS: BP 125/63; PULSE 86; RESP 16; TEMP 36.44736; O2SAT 96
[2024-05-15] VITALS (8 sets, daily range): BP systolic 100–129; BP diastolic 57–72; PULSE 79–98; RESP 16–20; TEMP 35.78064–36.9474; O2SAT 94–100
[2024-05-15] MEDS ORDERED: SIMETHICONE 80MG TABLET CHEW PO PRN (04:00)
[2024-05-15] MEDS ORDERED: DEXTROSE 50% WATER 50ML SYRINGE IV PRN (04:15)
[2024-05-15] MEDS: BLOOD SUGAR DIAGNOSTIC STRIP TEST SCH (06:40)
[2024-05-15] MEDS: CYANOCOBALAMIN 1000MCG TABLET PO SCH (07:10)
[2024-05-15] MEDS: INSULIN LISPRO 100 UNITS/ML SUBCUT SCH (07:10)
[2024-05-15] MEDS: CALCIUM ACETATE 667MG CAPSULE PO SCH (07:10)
[2024-05-15] MEDS: MIDODRINE HCL 5MG TABLET PO SCH (08:59)
[2024-05-15] MEDS: FERROUS SULFATE 325MG TABLET PO SCH (08:59)
[2024-05-15] MEDS: LORATADINE 10MG TABLET PO SCH (08:59)
[2024-05-15] MEDS: CHOLECALCIFEROL (D3) 1000 UNIT TABLET PO SCH (08:59)
[2024-05-15] MEDS: KETOROLAC 15MG/ML VIAL IV PRN (08:59)
[2024-05-15] MEDS ORDERED: CHOLECALCIFEROL 4000 UNIT PO SCH (09:00)
[2024-05-15] MEDS ORDERED: MEDICATION NOT ON FORMULARY EA (Simvastatin 20 MG) PO SCH (09:00)
[2024-05-15] MEDS: POTASSIUM CHLORIDE 20MEQ/PACKET PO NR (11:21)
[2024-05-15 15:44] LABS: POTASSIUM 4.4 mEq/L (3.5-5.1)
[2024-05-15] MEDS: ATORVASTATIN CALCIUM 10MG TABLET PO SCH (21:10)
[2024-05-16] VITALS: BP 126/61; PULSE 94; RESP 18; TEMP 36.55848; O2SAT 94
[2024-05-16 04:00] VITALS: BP 120/64; PULSE 94; RESP 18; TEMP 36.78072; O2SAT 95
[2024-05-16 08:00] VITALS: BP 121/61; PULSE 90; RESP 18; TEMP 36.72516; O2SAT 96
[2024-05-16 20:00] VITALS: BP 105/60; PULSE 83; RESP 19; TEMP 36.3918; O2SAT 96
[2024-05-17] VITALS (12 sets, daily range): BP systolic 103–127; BP diastolic 60–73; PULSE 73–99; RESP 16–20; TEMP 36.114–36.61404; O2SAT 20–98
[2024-05-17] MEDS: INFLUENZA VACCINE 05/PF 0.5 ML SYRINGE IM ONE (18:15)
[2024-05-18] VITALS: BP 123/63; PULSE 91; RESP 19; TEMP 36.33624; O2SAT 98
[2024-05-18 04:00] VITALS: BP 109/50; PULSE 91; RESP 19; TEMP 36.33624; O2SAT 99
[2024-05-18 08:00] VITALS: BP 132/30; PULSE 86; RESP 18; TEMP 36.3918; O2SAT 98
[2024-05-18 12:00] VITALS: BP 128/68; PULSE 72; RESP 18; TEMP 36.33624; O2SAT 100
[2024-05-18 12:31] VITALS: BP 128/68; PULSE 72; TEMP 97.4; O2SAT 100
== END 2024-05-18 15:16 | disposition home or self-care (01) | DRG 254 ==
LOC: ER 17:07 → EDBEDREQTM 18:28 → EDBEDREQ 18:28 → 5WST 20:19 → EDBEDREQTM 20:20 → EDBEDREQ 20:20 → 7EST 05-15 02:54
PROVIDERS: ADMIT Internal Medicine; ATTEND Internal Medicine
PROC: 3E02340 Introduction of Influenza Vaccine into Muscle, Percutaneous Approach (ICD-10-PCS; 2024-05-15)
PROC: 5A1D70Z Performance of Urinary Filtration, Intermittent, Less than 6 Hours Per Day (ICD-10-PCS; principal; 2024-05-17)
DX: K46.9 Unspecified abdominal hernia without obstruction or gangrene (principal); I12.0 Hypertensive chronic kidney disease with stage 5 chronic kidney disease or end stage renal disease; I95.89 Other hypotension; N18.6 End stage renal disease; E83.39 Other disorders of phosphorus metabolism; D63.1 Anemia in chronic kidney disease; E11.22 Type 2 diabetes mellitus with diabetic chronic kidney disease; E87.6 Hypokalemia; I25.10 Atherosclerotic heart disease of native coronary artery without angina pectoris; E66.9 Obesity, unspecified; Z99.2 Dependence on renal dialysis; Z93.3 Colostomy status; Z88.5 Allergy status to narcotic agent; Z68.28 Body mass index [BMI] 28.0-28.9, adult; Z98.84 Bariatric surgery status; Z79.899 Other long term (current) drug therapy; Z91.199 Patient's noncompliance with other medical treatment and regimen due to unspecified reason
CPT/HCPCS: 36415; 71045; 73562; 74176; 80048; 80076; 82962; 83036; 83880; 84132; 84484; 85025; 90935; 93005; 97162; 99285; J1815; J1885; J2270; J2405; J7030

== ENCOUNTER 2024-05-24 22:59 | Inpatient (IN) | payer BC, MEDICAID ==
[~2024-05-24] VITALS: Ht 170.2 cm; Wt 84.8 kg
[~2024-05-24 22:59] MED LIST changes: -ACET-283 PO
[2024-05-24 23:37] LABS: BASOPHILS % 0.5 % (0.0-2.0); DIFFERENTIAL COMMENT 0; EOSINOPHILS % 1.8 % (0.0-5.0); HEMOGLOBIN. 10.2 g/dL (12.0-16.0); LYMPHOCYTES % 16.8 % (20.0-50.0); MEAN CORPUSCULAR HEMOGLOBIN 33.9 pg (28.0-32.0); MEAN CORPUSCULAR HGB CONC 32.8 g/dL (31.0-37.0); MEAN CORPUSCULAR VOLUME 103.2 fL (81.0-99.0); MEAN PLATELET VOLUME 7.4 fl (7.4-10.4); MONOCYTES % 7.9 % (2.0-8.0); PLATELET 197 x1000/uL (130-400); RED CELL DISTRIBUTION WIDTH 16.1 % (11.6-14.6); WHITE BLOOD COUNT 6.8 x1000/uL (4.5-11.0)
[2024-05-24 23:49] LABS: CHLORIDE 97 mEq/L (98-107); POTASSIUM 4.1 mEq/L (3.5-5.1); SODIUM 132 mEq/L (136-145)
[2024-05-24 23:50] LABS: CARBON DIOXIDE 23 mEq/L (21-32)
[2024-05-24 23:51] LABS: CALCIUM 8.8 mg/dL (8.7-10.4)
[2024-05-24 23:56] LABS: UREA NITROGEN BLOOD 47 mg/dL (9-23)
[2024-05-24 23:57] LABS: TROPONIN I HIGH SENSITIVITY 24 ng/L (3.0-34)
[2024-05-25] MEDS: DEXTROSE 50% WATER 50ML SYRINGE IV NR (00:27)
[2024-05-25 00:28] LABS: GLUCOSE 36 mg/dL (70-105)
[2024-05-25 00:29] LABS: CREATININE 9.9 mg/dL (0.6-1.0)
[2024-05-25] MEDS: MIDODRINE HCL 2.5MG TABLET PO SCH (09:00)
[2024-05-25 12:00] VITALS: BP 93/47; PULSE 79; RESP 18; TEMP 36.3918; O2SAT 100
[2024-05-25 16:00] VITALS: BP 108/48; PULSE 80; RESP 16; TEMP 36.55848; O2SAT 99
[2024-05-25] MEDS ORDERED: ONDANSETRON HCL 4MG/2ML INJ IV PRN (16:00)
[2024-05-25] MEDS ORDERED: DEXTROSE 50% WATER 50ML SYRINGE IV PRN (16:00)
[2024-05-25] MEDS ORDERED: SODIUM CHLORIDE 10% FOR INH 15ML NEB INH SCH (16:45)
[2024-05-25] MEDS ORDERED: ACETAMINOPHEN 325MG TABLET PO PRN (17:00)
[2024-05-25] MEDS ORDERED: SIMETHICONE 80MG TABLET CHEW PO PRN (17:00)
[2024-05-25] MEDS ORDERED: TRAMADOL 50MG TABLET PO PRN (17:30)
[2024-05-25] MEDS: BLOOD SUGAR DIAGNOSTIC STRIP TEST SCH (18:00)
[2024-05-25] MEDS: DOXYCYCLINE 100MG/100ML 100 ML IV SCH (18:37)
[2024-05-25] MEDS: ASPIRIN 81MG EC TABLET PO SCH (18:38)
[2024-05-25] MEDS: CALCIUM ACETATE 667MG CAPSULE PO SCH (18:38)
[2024-05-25] MEDS: MIDODRINE HCL 5MG TABLET PO NR (18:39)
[2024-05-25] MEDS: INSULIN LISPRO 100 UNITS/ML SUBCUT SCH (18:41)
[2024-05-25] MEDS: LORATADINE 10MG TABLET PO SCH (18:50)
[2024-05-25 18:53] LABS: BASOPHILS % 0.7 % (0.0-2.0); DIFFERENTIAL COMMENT 0; EOSINOPHILS % 1.7 % (0.0-5.0); HEMATOCRIT. 31.8 % (36.0-48.0); HEMOGLOBIN. 10.2 g/dL (12.0-16.0); LYMPHOCYTES % 16.3 % (20.0-50.0); MEAN CORPUSCULAR HEMOGLOBIN 33.4 pg (28.0-32.0); MEAN CORPUSCULAR HGB CONC 31.9 g/dL (31.0-37.0); MEAN CORPUSCULAR VOLUME 104.6 fL (81.0-99.0); MONOCYTES % 9.3 % (2.0-8.0); PLATELET 195 x1000/uL (130-400); RED BLOOD CELL COUNT 3.05 mill/uL (4.2-5.4); WHITE BLOOD COUNT 5.7 x1000/uL (4.5-11.0)
[2024-05-25 18:59] LABS: CARBON DIOXIDE 21 mEq/L (21-32); CHLORIDE 97 mEq/L (98-107); POTASSIUM 4.5 mEq/L (3.5-5.1); SODIUM 130 mEq/L (136-145)
[2024-05-25 19:00] LABS: CALCIUM 7.9 mg/dL (8.7-10.4)
[2024-05-25 19:04] LABS: GLUCOSE 143 mg/dL (70-105)
[2024-05-25 19:05] LABS: TRIGLYCERIDE 106 mg/dL (0-150); UREA NITROGEN BLOOD 55 mg/dL (9-23)
[2024-05-25 19:06] LABS: CREATININE 11.4 mg/dL (0.6-1.0); LDL CHOLESTEROL 28 mg/dL (5-100)
[2024-05-25 19:07] LABS: CHOLESTEROL 100 mg/dL (<200); HDL CHOLESTEROL 57 mg/dL (>65)
[2024-05-25 19:11] LABS: PHOSPHORUS 8.5 mg/dL (2.5-4.9)
[2024-05-25] MEDS: ATORVASTATIN CALCIUM 10MG TABLET PO SCH (21:00)
[2024-05-26] VITALS (7 sets, daily range): BP systolic 110–122; BP diastolic 44–78; PULSE 79–91; RESP 18–20; TEMP 36.28068–36.89184; O2SAT 96–100
[2024-05-26 07:03] LABS: CARBON DIOXIDE 18 mEq/L (21-32); CHLORIDE 97 mEq/L (98-107); POTASSIUM 5.7 mEq/L (3.5-5.1); SODIUM 130 mEq/L (136-145)
[2024-05-26 07:04] LABS: CALCIUM 8.5 mg/dL (8.7-10.4)
[2024-05-26 07:09] LABS: GLUCOSE 96 mg/dL (70-105); UREA NITROGEN BLOOD 61 mg/dL (9-23)
[2024-05-26 07:26] LABS: DIFFERENTIAL COMMENT 0; EOSINOPHILS % 2.3 % (0.0-5.0); HEMATOCRIT. 31.3 % (36.0-48.0); HEMOGLOBIN. 10.1 g/dL (12.0-16.0); LYMPHOCYTES % 19.7 % (20.0-50.0); MEAN CORPUSCULAR HEMOGLOBIN 33.4 pg (28.0-32.0); MEAN CORPUSCULAR HGB CONC 32.3 g/dL (31.0-37.0); MEAN CORPUSCULAR VOLUME 103.5 fL (81.0-99.0); MEAN PLATELET VOLUME 7.5 fl (7.4-10.4); MONOCYTES % 7.6 % (2.0-8.0); NEUTROPHILS % 69.4 % (40.0-76.0); PLATELET 196 x1000/uL (130-400); RED BLOOD CELL COUNT 3.03 mill/uL (4.2-5.4); RED CELL DISTRIBUTION WIDTH 15.8 % (11.6-14.6); WHITE BLOOD COUNT 5.9 x1000/uL (4.5-11.0)
[2024-05-26 08:04] LABS: CREATININE 12.4 mg/dL (0.6-1.0)
[2024-05-26 08:06] LABS: PHOSPHORUS 10.1 mg/dL (2.5-4.9)
[2024-05-26] MEDS ORDERED: NALOXONE HCL 0.4MG/ML VIAL IV PRN (08:15)
[2024-05-26] MEDS: PANTOPRAZOLE SODIUM 40 MG/VIAL IV SCH (08:31)
[2024-05-26] MEDS: SODIUM BICARBONATE 8.4% 50MEQ/50ML SYR IV NR (08:31)
[2024-05-26] MEDS: ENOXAPARIN 30MG/0.3ML SYR SUBCUT SCH (08:31)
[2024-05-26] MEDS: THIAMINE HCL 100MG TABLET PO SCH (08:34)
[2024-05-26] MEDS: FERROUS SULFATE 325MG TABLET PO SCH (08:35)
[2024-05-26] MEDS: CHOLECALCIFEROL (D3) 1000 UNIT TABLET PO SCH (08:35)
[2024-05-26] MEDS: CYANOCOBALAMIN 1000MCG TABLET PO SCH (08:35)
[2024-05-26] MEDS: MULTIVITAMINS,THER W-MINERALS TABLET PO SCH (08:40)
[2024-05-26] MEDS: FLUDROCORTISONE ACETATE 0.1MG TABLET PO SCH (08:41)
[2024-05-26] MEDS ORDERED: MEDICATION NOT ON FORMULARY EA (Simvastatin 20 MG) PO SCH (09:00)
[2024-05-26] MEDS ORDERED: ENOXAPARIN 40MG/0.4ML SYR SUBCUT SCH (09:00)
[2024-05-26] MEDS: CALCIUM GLUCONATE 1GM PREMIX 50 ML IV NR (11:03)
[2024-05-26] MEDS: CALCIUM ACETATE 667MG CAPSULE PO SCH (18:17)
[2024-05-27] VITALS (13 sets, daily range): BP systolic 101–137; BP diastolic 49–67; PULSE 76–84; RESP 15–20; TEMP 36.28068–36.72516; O2SAT 98–100
[2024-05-27 05:43] LABS: POTASSIUM 5.6 mEq/L (3.5-5.1)
[2024-05-27 05:45] LABS: CALCIUM 8.6 mg/dL (8.7-10.4)
[2024-05-27 06:40] LABS: BASOPHILS % 0.8 % (0.0-2.0); DIFFERENTIAL COMMENT 0; EOSINOPHILS % 2.6 % (0.0-5.0); HEMATOCRIT. 31.7 % (36.0-48.0); HEMOGLOBIN. 10.2 g/dL (12.0-16.0); LYMPHOCYTES % 20.7 % (20.0-50.0); MEAN CORPUSCULAR HEMOGLOBIN 33.1 pg (28.0-32.0); MEAN CORPUSCULAR HGB CONC 32.2 g/dL (31.0-37.0); MEAN CORPUSCULAR VOLUME 102.9 fL (81.0-99.0); MEAN PLATELET VOLUME 7.8 fl (7.4-10.4); MONOCYTES % 8.3 % (2.0-8.0); NEUTROPHILS % 67.6 % (40.0-76.0); PLATELET 212 x1000/uL (130-400); RED BLOOD CELL COUNT 3.08 mill/uL (4.2-5.4); RED CELL DISTRIBUTION WIDTH 15.5 % (11.6-14.6); WHITE BLOOD COUNT 5.8 x1000/uL (4.5-11.0)
[2024-05-28] MEDS ORDERED: DOXYCYCLINE HYCLATE 100MG CAPSULE PO SCH (09:00)
== END 2024-05-27 17:20 | disposition home or self-care (01) | DRG 466 ==
LOC: ER 22:59 → 5WST 05-25 00:16 → EDBEDREQTM 05-25 00:53 → EDBEDREQDT 05-25 00:53 → EDBEDREQ 05-25 00:53 → EDBEDREQSVC 05-25 00:53 → 7WST 05-25 22:06
PROVIDERS: ADMIT Internal Medicine; ATTEND Internal Medicine
PROC: 5A1D70Z Performance of Urinary Filtration, Intermittent, Less than 6 Hours Per Day (ICD-10-PCS; principal; 2024-05-27)
DX: T82.590A Other mechanical complication of surgically created arteriovenous fistula, initial encounter (principal); I12.0 Hypertensive chronic kidney disease with stage 5 chronic kidney disease or end stage renal disease; E11.649 Type 2 diabetes mellitus with hypoglycemia without coma; I95.89 Other hypotension; J18.9 Pneumonia, unspecified organism; D63.1 Anemia in chronic kidney disease; G45.9 Transient cerebral ischemic attack, unspecified; G90.89 Other disorders of autonomic nervous system; N18.6 End stage renal disease; Z20.822 Contact with and (suspected) exposure to COVID-19; E11.22 Type 2 diabetes mellitus with diabetic chronic kidney disease; L92.8 Other granulomatous disorders of the skin and subcutaneous tissue; Y83.8 Other surgical procedures as the cause of abnormal reaction of the patient, or of later complication, without mention of misadventure at the time of the procedure; E87.6 Hypokalemia; I51.7 Cardiomegaly; Z85.038 Personal history of other malignant neoplasm of large intestine; Z88.5 Allergy status to narcotic agent; Z90.49 Acquired absence of other specified parts of digestive tract; Z91.148 Patient's other noncompliance with medication regimen for other reason; Z91.199 Patient's noncompliance with other medical treatment and regimen due to unspecified reason; Z98.84 Bariatric surgery status; Z99.2 Dependence on renal dialysis; Y92.89 Other specified places as the place of occurrence of the external cause
CPT/HCPCS: 36415; 71045; 80048; 80061; 82962; 83735; 83880; 84100; 84484; 85025; 87426; 87804; 90935; 93005; 93880; 99291; C1893; J0610; J1650; J1815; J2470; J3490; J7131

== ENCOUNTER 2024-06-20 12:23 | Emergency (ER) | payer MEDICAID ==
[~2024-06-20] VITALS: Ht 165.1 cm; Wt 65.0 kg
[2024-06-20 12:25] VITALS: O2SAT 99
[2024-06-20 13:19] LABS: BASOPHILS % 0.6 % (0.0-2.0); DIFFERENTIAL COMMENT 0; EOSINOPHILS % 1.1 % (0.0-5.0); HEMATOCRIT. 31.6 % (36.0-48.0); HEMOGLOBIN. 10.5 g/dL (12.0-16.0); LYMPHOCYTES % 14.7 % (20.0-50.0); MEAN CORPUSCULAR HEMOGLOBIN 33.5 pg (28.0-32.0); MEAN CORPUSCULAR HGB CONC 33.2 g/dL (31.0-37.0); MEAN CORPUSCULAR VOLUME 100.9 fL (81.0-99.0); MEAN PLATELET VOLUME 7.1 fl (7.4-10.4); NEUTROPHILS % 74.6 % (40.0-76.0); PLATELET 161 x1000/uL (130-400); RED BLOOD CELL COUNT 3.13 mill/uL (4.2-5.4); RED CELL DISTRIBUTION WIDTH 16.5 % (11.6-14.6); WHITE BLOOD COUNT 4.7 x1000/uL (4.5-11.0)
[2024-06-20 13:23] LABS: POTASSIUM 3.9 mEq/L (3.5-5.1)
[2024-06-20 13:24] LABS: CALCIUM 8.6 mg/dL (8.7-10.4)
[2024-06-20 13:30] LABS: INR 0.9; PARTIAL THROMBOPLASTIN TIME 27.5 sec (23.4-31.0); PROTHROMBIN TIME 10.2 sec (9.6-11.0)
[2024-06-20 13:33] LABS: CREATININE 8.3 mg/dL (0.6-1.0)
[2024-06-20] MEDS: FLUORESCEIN SODIUM 1MG/STRIP LEFTEYE ONE (15:30)
[2024-06-20] MEDS: TETRACAINE 0.5% OPHTH DROPS 4ML LEFTEYE ONE (15:31)
[2024-06-20] MEDS: ASPIRIN 325MG EC TABLET PO NR (16:17)
[2024-06-20 19:45] VITALS: BP 111/62; PULSE 88; RESP 13; TEMP 36.89184; O2SAT 96
[2024-06-20] MEDS ORDERED: IOHEXOL-350 100 ML BOTTLE ONE (23:01)
== END 2024-06-20 19:56 | disposition short-term general hospital (02) ==
LOC: ER 12:23
DX: H54.62 Unqualified visual loss, left eye, normal vision right eye (principal); I12.0 Hypertensive chronic kidney disease with stage 5 chronic kidney disease or end stage renal disease; E11.22 Type 2 diabetes mellitus with diabetic chronic kidney disease; N18.6 End stage renal disease; Z99.2 Dependence on renal dialysis; Z79.899 Other long term (current) drug therapy; Z88.5 Allergy status to narcotic agent
CPT/HCPCS: 80048; 85025; 85610; 85730; 36415; 70496; 70498; 70450; 93005; 99285; Q9967; Z7610

== ENCOUNTER 2024-08-06 15:08 | Emergency (ER) | payer MEDICAID ==
[~2024-08-06] VITALS: Ht 162.6 cm; Wt 73.0 kg
[~2024-08-06 15:08] MED LIST changes: +AMOX1TAB15 MT; +CHOL200059 PO; -CHOL40002 PO
[2024-08-06 15:10] VITALS: O2SAT 98
[2024-08-06] MEDS: HYDROCODONE/ACETAMINOPHEN 5/325MG TABLET PO STA (15:45)
[2024-08-06 15:46] VITALS: BP 103/76; PULSE 95; RESP 16; TEMP 36.61404; O2SAT 98
[2024-08-06] MEDS: TETRACAINE 0.5% OPHTH DROPS 4ML LEFTEYE ONE (15:46)
[2024-08-06 17:36] LABS: BASOPHILS % 0.5 % (0.0-2.0); DIFFERENTIAL COMMENT 0; EOSINOPHILS % 0.4 % (0.0-5.0); HEMATOCRIT. 31.8 % (36.0-48.0); HEMOGLOBIN. 10.2 g/dL (12.0-16.0); LYMPHOCYTES % 8.5 % (20.0-50.0); MEAN CORPUSCULAR HEMOGLOBIN 33.7 pg (28.0-32.0); MEAN CORPUSCULAR HGB CONC 32.1 g/dL (31.0-37.0); MEAN PLATELET VOLUME 7.1 fl (7.4-10.4); MONOCYTES % 4.6 % (2.0-8.0); PLATELET 216 x1000/uL (130-400); RED BLOOD CELL COUNT 3.02 mill/uL (4.2-5.4); RED CELL DISTRIBUTION WIDTH 17.5 % (11.6-14.6); WHITE BLOOD COUNT 6.7 x1000/uL (4.5-11.0)
[2024-08-06 17:47] LABS: POTASSIUM 3.2 mEq/L (3.5-5.1)
[2024-08-06 17:49] LABS: CALCIUM 9.3 mg/dL (8.7-10.4)
[2024-08-06 17:57] LABS: CREATININE 8.5 mg/dL (0.6-1.0)
[2024-08-06] MEDS ORDERED: TRAM50TA3 MT (20:06)
[2024-08-06] MEDS ORDERED: GLYC30DR4 LEFTEYE (20:30)
== END 2024-08-06 21:24 | disposition home or self-care (01) ==
LOC: ER 15:08
DX: H54.62 Unqualified visual loss, left eye, normal vision right eye (principal); H57.12 Ocular pain, left eye; I12.0 Hypertensive chronic kidney disease with stage 5 chronic kidney disease or end stage renal disease; N18.6 End stage renal disease; E11.9 Type 2 diabetes mellitus without complications; Z88.5 Allergy status to narcotic agent; Z79.899 Other long term (current) drug therapy; Z99.2 Dependence on renal dialysis; Z90.49 Acquired absence of other specified parts of digestive tract; Z98.890 Other specified postprocedural states
CPT/HCPCS: 36415; 80048; 80202; 85025; 99283

== ENCOUNTER 2024-09-08 14:27 | Emergency (ER) | payer MEDICAID ==
[~2024-09-08] VITALS: Ht 162.6 cm; Wt 82.0 kg
[~2024-09-08 14:27] MED LIST changes: +GLYC30DR4 LEFTEYE; +TRAM50TA3 MT
[2024-09-08 14:35] VITALS: TEMP 36.9; O2SAT 99
[2024-09-08] MEDS: ACETAMINOPHEN 500MG TABLET PO ONE (16:30)
[2024-09-08] MEDS: TRAMADOL 50MG TABLET PO ONE (16:30)
[2024-09-08] MEDS ORDERED: TRAM50TA3 MT (16:46)
[2024-09-08 20:10] VITALS: BP 124/71; PULSE 81; RESP 19; O2SAT 100
== END 2024-09-08 20:11 | disposition home or self-care (01) ==
LOC: ER 14:27
DX: G89.29 Other chronic pain (principal); H57.12 Ocular pain, left eye; E11.22 Type 2 diabetes mellitus with diabetic chronic kidney disease; I12.0 Hypertensive chronic kidney disease with stage 5 chronic kidney disease or end stage renal disease; N18.6 End stage renal disease; Z79.899 Other long term (current) drug therapy; Z86.73 Personal history of transient ischemic attack (TIA), and cerebral infarction without residual deficits; Z88.5 Allergy status to narcotic agent; Z99.2 Dependence on renal dialysis; Z90.49 Acquired absence of other specified parts of digestive tract; Z98.890 Other specified postprocedural states
CPT/HCPCS: 99283